=== PATIENT | female | born 1945 | race Caucasian/White ===

== ENCOUNTER → 2017-11-23 | Outpatient (CLI) | payer OTHER, MEDICARE ==
[~2017-11-23] VITALS: Ht 177.8 cm; Wt 78.0 kg
[~2017-11-23] MED LIST: A-CARO-2525000 UNIT PO; ALLERGY RELIEF25 M2 PO; ALPHA LIPOIC A200 M1 PO; APPLE CIDER VI500 MG PO; BACTRIM DS TAB1 EACH PO; BENADRYL25 MG PO; CALCIUM 600 +1 EAC1 PO; CALCIUM-MAGNES1 EAC4 PO; CENTRUM SILVER1 EAC4 PO; CHERRY FRUIT EXTRACT PO; CINNAMON500 MG PO; CO Q-10200 MG PO; GLIMEPIRIDE1 MG PO; HYDROCHLOROTHIA25 M2 PO; LEVOTHYROXINE 0.1 MG PO; LEVOXYL100 MCG PO; OMEGA-31000 M1 PO; PERCOCET 5-3251 EACH PO; TURMERIC/CURCUMIN PO; VENTOLIN HFA 1818 GM INH; VITAMINC500 PO
--- NOTE | ~2017-11-23 | PATH ---
[facility] [place] [address] PATHOLOGY RPT PROCEDURE Name: JULIA GAN MARCIA Room #: REG BLACK Crisostomo.#: [id number] Admission: 11/23/17 Date of : 49 Discharge: Report #: [id number] Path Case #: [id number] LCA Accession Number: [id number] . 01 Material submitted: . PART A: BX OF GASTRIC PART B: BX OF DISTAL ESOPHAGUS . 01 Clinical history: . Pre-OP DX: EHR, dysphagia Post-OP DX: Esophageal stricture, hiatal hernia, gastritis . 02 Diagnosis: A. Gastric mucosa, gastric, rule out H. pylori, endoscopic biopsy: - Mild reactive gastropathy. - Negative for intestinal metaplasia or atrophy. - Negative for Helicobacter pylori (properly controlled immunohistochemical stain performed). . B. Gastroesophageal mucosa, distal esophagus/distal esophageal stricture, rule out Knowles's, endoscopic biopsy: - Mild acute esophagitis. - Negative for intestinal metaplasia or dysplasia. - No increase in intraepithelial eosinophils. S/11/24/2017 . 02 Comment: Part B only co-reviewed by Dr. Brianna Ramos. . (IUV:alz; 11/24/2017) . 02 Electronically signed: . Ml Chen MD, Pathologist NPI- [id number] . 01 Gross description: . A. Received in formalin labeled "Julia Gan, BX of gastric, rule out H. pylori," are 2 segments of barahona soft tissue measuring 0.7 x 0.2 x 0.2 cm in aggregate dimensions and ranging from 0.3 to 0.4 cm in maximum dimension. The specimen is submitted entirely in cassette A1. . B. Received in formalin labeled "Julia Gan, BX of distal esophagus, rule out Knowles's," and additionally labeled on the requisition as "distal esophageal stricture BX," are 4 segments of barahona soft tissue measuring 1.1 x 0.7 x 0.2 cm in aggregate dimensions and ranging from 0.2 to 0.3 cm in maximum dimension. The specimen is submitted entirely in cassette B1. [address] [address] PATHOLOGY RPT PROCEDURE Name: JULIA GAN Room #: REG BLACK Diaz#: [id number] Admission: 11/23/17 Date of : 49 Discharge: Report #: [id number] Path Case #: [id number] (TSD; 11/23/2017) TOB/TOB . 02 Pathologist provided ICD-10: K31.9, K20.9 . 02 CPT . 608358, 355346, [id number] Performed at: [address], [place] [id number] MD Tarun Victor MD Phone: [phone] Performed at: [address] [id number] MD Ml Chen MD Phone: [phone]
== END | disposition home or self-care (01) ==
LOC: GI 08:29
DX: K29.70 Gastritis, unspecified, without bleeding (principal); K22.2 Esophageal obstruction; K31.9 Disease of stomach and duodenum, unspecified; K20.9 Esophagitis, unspecified; K44.9 Diaphragmatic hernia without obstruction or gangrene; E11.9 Type 2 diabetes mellitus without complications; E03.9 Hypothyroidism, unspecified; Z79.899 Other long term (current) drug therapy; Z90.710 Acquired absence of both cervix and uterus; Z98.890 Other specified postprocedural states; Z98.41 Cataract extraction status, right eye; Z98.42 Cataract extraction status, left eye; Z96.1 Presence of intraocular lens; Z85.3 Personal history of malignant neoplasm of breast
CPT/HCPCS: 62110; 62900

== ENCOUNTER → 2017-12-30 | Outpatient (CLI) | payer OTHER, MEDICARE | LOC: SPEECH 09:57 | DX: K21.9 Gastro-esophageal reflux disease without esophagitis (principal); R13.14 Dysphagia, pharyngoesophageal phase; E03.9 Hypothyroidism, unspecified; J30.9 Allergic rhinitis, unspecified; R49.0 Dysphonia; J44.9 Chronic obstructive pulmonary disease, unspecified ==

== ENCOUNTER → 2018-04-06 | Outpatient (CLI) | payer OTHER, MEDICARE ==
[~2018-04-06] MED LIST changes: +ACETAMINOPHEN325 M1 PO; +AMARYL2 MG PO; +FLONASE 0.05%50 MCG NASAL; +MIRALAX17 GM PO; +NORCO 5-325 TA1 EACH PO; +PACERONE 200 M200 M1 PO; +PROTONIX40 M1 PO; +ZYRTEC10 M5 PO
== END ==
LOC: NUC 11:56 → CARD 11:59
DX: R07.9 Chest pain, unspecified (principal)

== ENCOUNTER → 2018-04-13 | Outpatient (CLI) | payer OTHER, MEDICARE ==
[2018-04-13 09:58] LABS: BASOPHILS 1.1 % (0.0-2.0); EOSINOPHILS 1.4 % (0.0-3.0); HEMATOCRIT 41.8 % (37.0-47.0); HEMOGLOBIN 14.6 gm/dL (12.0-15.0); LYMPHOCYTES 27.7 % (24.0-44.0); MCH 30.5 pg (26.0-34.0); MCHC 34.8 g/dL (28.0-37.0); MCV 87.7 fL (80.0-100.0); MONOCYTES 7.7 % (1.0-8.0); PLATELET COUNT 159 thou/uL (150-400); POLYS 62.1 % (36.0-66.0); RBC 4.76 mil/uL (4.20-5.00); RDW 13.6 % (10.5-14.5); WBC 6.4 thou/uL (4.0-11.0)
[2018-04-13 10:17] LABS: ALBUMIN 4.1 g/dL (3.4-5.0); CALCIUM 9.8 mg/dL (8.5-10.1); CREATININE 0.9 mg/dL (0.6-1.0); POTASSIUM 3.8 mmol/L (3.5-5.1); TOTAL BILIRUBIN 0.6 mg/dL (<0.1-1.0); TOTAL PROTEIN 7.7 g/dL (6.4-8.2)
== END ==
LOC: CAT 08:57
PROVIDERS: Internal Medicine Cardiovascular Disease
DX: I48.91 Unspecified atrial fibrillation (principal); I25.10 Atherosclerotic heart disease of native coronary artery without angina pectoris; J98.11 Atelectasis; M47.812 Spondylosis without myelopathy or radiculopathy, cervical region

== ENCOUNTER 2018-04-21 06:49 | Observation (INO) | payer OTHER, MEDICARE ==
[~2018-04-21] VITALS: Ht 177.8 cm; Wt 77.1 kg
--- NOTE | ~2018-04-21 | EKG ---
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1945 Requested By: Xavier Keita Order Number: [id number] MD: Luís Mast Measurements Intervals [place] Rate: 74 P: 22 TX: 170 QRS: -10 QRSD: 94 T: 38 QT: 416 QTc: 462 Interpretive Statements Sinus rhythm Borderline T wave abnormalities Compared to ECG 01/31/2018 08:21:36 No significant change was found Electronically Signed On 04-22-2018 7:44:46 NEPHROLOGY NURSE by Luís Mast [email or web address] <ELECTRONICALLY SIGNED> By: Luís Mast MD, [facility] 04/22/18 0744 1544 1544 Luís Mast MD, [facility] /EPI
--- NOTE | ~2018-04-21 | P ---
[facility] [place] [address] [place] [address] PROCEDURE REPORT Name: KRISTI GAN Room #: 219-P [facility] M.Emil#: [id number] Admission: 04/21/18 Attend Phys: Xavier Keita MD Discharge: Date of : 49 Report #: [id number] THIS REPORT FOR: //name// CC: FAM unknown Xavier SEGAL DATE OF SERVICE: 04/21/2018 PROCEDURE: AFib ablation. PREOPERATIVE DIAGNOSIS: Paroxysmal atrial fibrillation. POSTOPERATIVE DIAGNOSIS: Paroxysmal atrial fibrillation. HISTORY: The patient is a 73-year-old female with a history of paroxysmal atrial fibrillation who is here for AFib ablation. PROCEDURES PERFORMED: 1. AFib ablation, CPT code 47612. 2. 3D mapping, CPT code 86461. 3. Intracardiac echo, CPT code 29121. ANESTHESIA: The patient underwent general anesthesia with no anesthesia related complications. DESCRIPTION OF PROCEDURE: The patient underwent informed consent. We discussed the details of the procedure including the risks, which include but not limited to bleeding, vascular damage, cardiac perforation, stroke, [place]. She understood these risks and is willing to proceed. The patient was brought to the EP laboratory in a fasting and sedated state and prepped and draped in a sterile fashion. I obtained access to the right femoral vein x 3, placing a 9-Hungarian, 8-Hungarian and 7-Hungarian short sheaths using the modified Seldinger technique and then under fluoroscopy I placed a decapolar catheter easily in the coronary sinus and ICE catheter in the right atrium. Using intracardiac ultrasound, we created a detail 3D geometry of the left atrium with specific emphasis on the two left and two right pulmonary veins. The patient was then systemically heparinized and a transseptal was performed using an SL1 sheath and a [place] needle. This was straightforward. She did have a thin fossa. I then placed a Lasso catheter in the left atrium and we created a detailed 3D map of the left atrium. This was merged with the CT scan and the ICE images. Next, I exchanged the SL1 sheath for the cryo sheath and placed the cryoballoon into the left atrium. I performed two 4-minute freezes in the left superior pulmonary vein and this did not appear to have isolated. I then performed a third freeze of 200 seconds duration. All 3 freezes had very [facility] [address] [place] [address] PROCEDURE REPORT Name: KRISTI GAN MARCIA Room #: 219-P [facility] Melonie Diaz#: [id number] Admission: 04/21/18 Attend Phys: Xavier Keita MD Discharge: Date of : 49 Report #: [id number] good temperatures in the -40 degree range. I therefore deflated the balloon and interrogated the vein and at the ostium it appeared that it was actually isolated. Apparently, there were some far field left atrial appendage signals that we were seeing but the vein had already isolated. There was evidence of entrance and exit block throughout the vein as well. I then turned my attention to the left inferior pulmonary vein. I performed two 4-minute freezes in this vein and this was isolated. I then turned my attention to the right superior pulmonary vein. We performed two 4-minute freezes in this vein as well and this vein was isolated. I then re-interrogated the left-sided veins and they were still isolated and then I went to the right inferior pulmonary vein and I performed a 4-minute freeze in this vein. This vein isolated within 28 seconds of the first freeze, therefore only one freeze was required. I then removed the cryo catheter and placed the Lasso back into the left atrium and we created a detailed voltage map of the left atrium and there was clearly evidence of isolation of all four pulmonary veins with wide circumferential ablation of the veins. I then performed a basic EP study. Prior to ablation, the patient was in sinus rhythm with sinus cycle length of 180 milliseconds, QRS duration 80 milliseconds, QT interval 40 milliseconds, AH interval 95 milliseconds, and HV interval 48 milliseconds. Post-ablation, atrial pacing was performed from the right and left atriums and AV block was noted at 380 milliseconds. Atrial ERP was noted at 300 milliseconds at a [address] cycle length and AV diaz ERP was noted at 300 millisecond at [address] cycle length. The sinus node recovery time pacing at 400 milliseconds was 870 milliseconds. Post-ablation, the patient was in sinus rhythm with sinus cycle length of 90 milliseconds, PA interval 165 milliseconds, QRS duration 80 milliseconds, QT interval 400 milliseconds. As such, all catheters and sheaths were pulled. Hemostasis was obtained after the patient received systemic protamine. CONCLUSIONS: 1. Successful atrial fibrillation ablation with isolation of the 4 pulmonary veins. 2. Normal SA diaz function. 3. Normal AV diaz function. 4. Normal His-Purkinje function. 5. No other inducible arrhythmias on EP study. By: 1116 [id number] Xavier Keita MD /nt
[2018-04-21 07:21] LABS: ABSOLUTE NEUTROPHILS 4.7 thou/uL (1.4-8.2); BASOPHILS 0.5 % (0.0-2.0); EOSINOPHILS 1.9 % (0.0-3.0); HEMATOCRIT 42.5 % (37.0-47.0); HEMOGLOBIN 14.7 gm/dL (12.0-15.0); LYMPHOCYTES 24.8 % (24.0-44.0); MCH 30.6 pg (26.0-34.0); MCHC 34.5 g/dL (28.0-37.0); MCV 88.6 fL (80.0-100.0); MONOCYTES 9.2 % (1.0-8.0); PLATELET COUNT 167 thou/uL (150-400); POLYS 63.6 % (36.0-66.0); RDW 13.6 % (10.5-14.5); WBC 7.4 thou/uL (4.0-11.0)
[2018-04-21 07:33] LABS: CALCIUM 10.2 mg/dL (8.5-10.1); CREATININE 0.8 mg/dL (0.6-1.0); POTASSIUM 3.6 mmol/L (3.5-5.1)
[2018-04-21 07:34] LABS: APTT 29.8 Seconds (24.5-32.8); PROTIME 10.6 Seconds (9.3-11.4)
[2018-04-21] MEDS ORDERED: HYDROCHLOROTHIA25 M2 PO (07:36)
[2018-04-21] MEDS ORDERED: ADVAIR 100-501 EACH INH (07:36)
[2018-04-21] MEDS ORDERED: KLOR-CON 1010 MEQ PO (07:37)
[2018-04-21] MEDS ORDERED: PRADAXA150 MG PO (07:37)
[2018-04-21 07:39] VITALS: BP 117/59
[2018-04-21 07:40] LABS: ALBUMIN 4.3 g/dL (3.4-5.0); TOTAL BILIRUBIN 0.6 mg/dL (<0.1-1.0); TOTAL PROTEIN 8.5 g/dL (6.4-8.2)
[2018-04-21 19:55] VITALS: BP 106/56
[2018-04-22 01:22] VITALS: BP 126/69
[2018-04-22 06:05] VITALS: BP 112/62
[2018-04-22 08:30] VITALS: BP 127/72
[2018-04-22] MEDS ORDERED: FLECAINIDE ACET50 M2 PO (08:54)
[2018-04-22 09:52] VITALS: BP 127/72
== END 2018-04-22 11:00 | disposition home or self-care (01) ==
LOC: CATH 06:49 → 2N 12:27 → CATH 14:38 → ENTRNSPT 04-22 10:06 → EDTRNSPT 04-22 10:22 → 2N 04-22 11:00 → EDTRNSPTSTS 04-22 11:03
PROVIDERS: Internal Medicine Cardiovascular Disease
DX: I48.0 Paroxysmal atrial fibrillation (principal); E07.9 Disorder of thyroid, unspecified; E11.9 Type 2 diabetes mellitus without complications; Z98.890 Other specified postprocedural states; Z90.49 Acquired absence of other specified parts of digestive tract; Z79.899 Other long term (current) drug therapy; Z85.3 Personal history of malignant neoplasm of breast
CPT/HCPCS: 62110; 62900; 65020; 65040; 70005

== ENCOUNTER → 2018-10-25 | Outpatient (CLI) | payer OTHER, MEDICARE ==
[~2018-10-25] MED LIST changes: +ADVAIR 100-501 EACH INH; +FLECAINIDE ACET50 M2 PO; +KLOR-CON 1010 MEQ PO; +PRADAXA150 MG PO
[2018-10-25 11:22] VITALS: BP 149/78
--- NOTE | 2018-10-25 16:45 | P ---
[facility] [place] [address] PROCEDURE REPORT Name: KRISTI GAN Room #: REG Al Diaz#: [id number] Admission: 10/25/18 ������������������ Attend Phys: Xavier Keita MD Discharge: ������������������ Date of : 49 Report #: [id number] THIS REPORT FOR: //name// CC: FAM unknown Xavier Keita MARKIE SEGAL PREOPERATIVE DIAGNOSIS: 1. Atrial fibrillation. 2. Palpitations. PROCEDURE: Implantable loop recorder DESCRIPTION OF PROCEDURE: The patient underwent informed consent. She was prepped and draped in a sterile fashion. I then injected lidocaine at the incision site. Incision was made. The device was injected under the skin. A single layer of suture using 3-0 Vicryl was performed. Surgical glue was placed to the outer skin layer. There was no significant bleeding or complications. The implanted device was a [employer], model #3500, serial #[id number]. CONCLUSION: Successful implantable loop recorder insertion. ��������������������������������������������� <ELECTRONICALLY SIGNED> ���������������������������������������� By: Xavier Keita MD ��������������������������������������������� 10/25/18 1645 0913 1242 Xavier Keita MD /nt
== END | disposition home or self-care (01) ==
LOC: CATH 07:06
DX: I48.91 Unspecified atrial fibrillation (principal); R00.2 Palpitations; Z98.890 Other specified postprocedural states; Z88.8 Allergy status to other drugs, medicaments and biological substances; Z79.899 Other long term (current) drug therapy

== ENCOUNTER 2019-02-16 06:08 | Observation (INO) | payer OTHER, MEDICARE ==
[~2019-02-16] VITALS: Ht 177.8 cm; Wt 83.9 kg
[2019-02-16 07:06] VITALS: BP 135/62
[2019-02-16 07:15] LABS: BASOPHILS 0.6 % (0.0-2.0); EOSINOPHILS 3.7 % (0.0-3.0); HEMOGLOBIN 14.1 gm/dL (12.0-15.0); LYMPHOCYTES 33.5 % (24.0-44.0); MCH 30.4 pg (26.0-34.0); MCHC 33.5 g/dL (28.0-37.0); MCV 90.7 fL (80.0-100.0); MONOCYTES 10.7 % (1.0-8.0); PLATELET COUNT 138 thou/uL (150-400); POLYS 51.5 % (36.0-66.0); RBC 4.63 mil/uL (4.20-5.00); RDW 12.6 % (10.5-14.5); WBC 5.9 thou/uL (4.0-11.0)
[2019-02-16 07:22] LABS: CALCIUM 9.6 mg/dL (8.5-10.1); CREATININE 0.8 mg/dL (0.6-1.0); POTASSIUM 3.2 mmol/L (3.5-5.1)
--- NOTE | 2019-02-16 17:09 | NUR ---
TO THE UNIT POST ABLATION - PT ORIENTED TO THE ROOM AND BEDSPACE. VSS GROINSITE RIGHT WITH MIN AMOUNT OF BLOOD DRAINAGE PRESENT STABLE. GROIN REMAINS SOFT NO HEAMMATOMMA PRESENT. PT REMAINS ON BEDREST AT THE PRESENT TIME. EMMANUEL DIET AND FLUIDS. NO CO'S OF PAIN OR NAUSEA. FAMILY AT THE BEDSIDE. NO CO'S AT THE PRESENT TIME.
[2019-02-16 19:16] VITALS: BP 117/60
[2019-02-17 03:48] VITALS: BP 97/44
--- NOTE | 2019-02-17 04:42 | NUR ---
ASSESSMENTS CHARTED, MEDS CHARTED. PATIENT OFF BEDREST BEFORE START OF SHIFT. BOTH RIGHT AND LEFT GROIN SITES ARE CLEAN, DRY, INTACT, AND SOFT. IN SINUS RHYTHM DURING SHIFT. ON ROOM AIR, PURDY WAS TAKEN OUT AT START OF SHIFT, VOIDING WELL IN TOLIET. C/O PAIN SHOOTING DOWN LEFT LEG. PAIN MEDS GIVEN. PATIENT STEADY ON HER FEET. UP AT JOSEPH. PLAN OF CARE TO GO HOME TODAY.
[2019-02-17 08:49] VITALS: BP 108/63
[2019-02-17 09:38] VITALS: BP 108/63
--- NOTE | 2019-02-17 10:28 | NUR ---
ASSESSMENT CHARTED - MEDS PER AUG - NO CO'S OF PAIN OR NAUSEA - EMMANUEL DIET AND FLUIDS. UP AD JOSEPH IN ROOM. GROIN SITE C/D/I. PT HOME THIS AM - INSTRUCTION RE MEDS/ CARE AND FOLLOW UP GIVEN TO PT AND DAUGHTER - STATED UNDERSTANDING OF INSTRUCTION GIVEN, MONITOR AND IV REMOVED PRIOR TO D/C. LEFT UNIT VIA WHEELCHAIR - HOME VIA PVT VEHICLE ACCOMAPNIED BY DAUGHTER. NO CO'S AT TIME OF D/C.
--- NOTE | 2019-02-22 08:22 | P ---
[facility] [place] [address] PROCEDURE REPORT Name: KRISTI GAN Room #: 213-P [facility] Melonie Diaz#: [id number] Admission: 02/16/19 ������������������ Attend Phys: Xavier Keita MD Discharge: 02/17/19 ������������������ Date of : 49 Report #: [id number] THIS REPORT FOR: //name// CC: FAM unknown Xavier Keita DATE OF SERVICE: 02/17/2019 PREOPERATIVE DIAGNOSIS: Atrial fibrillation. POSTOPERATIVE DIAGNOSIS: Atrial fibrillation, atrial flutter. HISTORY OF PRESENT ILLNESS: The patient is a 74-year-old female with history of atrial fibrillation status post prior AFib ablation who has had clinical recurrence and is here for repeat ablation. PROCEDURES PERFORMED: 1. SVT ablation, CPT code 97305. 2. EP with left atrial pacing and recording, CPT code 33555. 3. Program stimulation and pacing after IV drug infusion, CPT code 20224. 4. Intracardiac echo, CPT code 18402. 5. Transseptal puncture, CPT code 19372. 6. Arterial line placement, CPT code 71485. ANESTHESIA: The patient underwent general anesthesia with no anesthesia related complications. The anesthesiologist had difficulty getting the venous and arterial access and therefore, I performed these procedures for them. DESCRIPTION OF PROCEDURE: The patient was prepped and draped in a sterile fashion. I then obtained access to the right femoral vein x 3, placing two 8-Burkinan short sheath and 7-Burkinan short sheath and then placed a 9-Burkinan short sheath in the left femoral vein and I placed a 5-Burkinan short sheath in the right femoral artery, all using the modified Seldinger technique. Next, under fluoroscopy, a Decapolar catheter was placed easily in the coronary sinus and ice catheter was placed into the left atrium. The patient was then systemically heparinized and a transseptal was performed using an SL1 sheath and a [place] needle. The initial spot I tried to go transseptal, I could not cross with my wire. Therefore, I went down a little lower and came on again with the [place] needle and this time, the wire cross into the left superior pulmonary vein. I then was able to advance the sheath into the left atrium. Next, using a [employer] ablation catheter, I interrogated all four pulmonary veins and they remained isolated from the prior procedure. Therefore, we went to the right side of the heart and using a ramp sheath and an 8 mm ablation catheter and performed an atrial flutter ablation. I performed ablation at 70 levine and 60 degrees. Pre-ablation, the transisthmus conduction time was 80 milliseconds and post-ablation, the transisthmus conduction time was [address] [address] PROCEDURE REPORT Name: MALIKKRISTINICOLE KENNEDY Room #: 213-P [facility] Diaz#: [id number] Admission: 02/16/19 ������������������ Attend Phys: Xavier Keita MD Discharge: 02/17/19 ������������������ Date of : 49 Report #: [id number]. Next, a basic EP study was performed and isoproterenol infusion was initiated and AV block was noted at 300 milliseconds. Atrial ERP was noted at 220 milliseconds at a [address] cycle length. Of note, when I was in the left atrium, I did give adenosine while the PentaRay was in each of the pulmonary veins. The patient received 6 of protamine and there was no evidence of reconnection in either of the veins and there was evidence of an adenosine effect with transitory heart block noted. As such, all veins remained isolated and there was no evidence of bidirectional block and an EP study did not induce any other arrhythmias to ablate. Therefore the procedure was concluded. The patient received systemic protamine and once ACT was within acceptable range, all catheters and sheaths were pulled and hemostasis was obtained. The patient awoke neurologically and hemodynamically intact. No complications and no significant bleeding. CONCLUSIONS: 1. Successful atrial flutter ablation with evidence of bidirectional block. 2. Persistence of pulmonary vein isolation with no evidence of reconnection with 6 mg of adenosine administered for pulmonary vein. 3. Normal EP study with no inducible arrhythmias on or off isoproterenol. ��������������������������������������������� <ELECTRONICALLY SIGNED> ���������������������������������������� By: Xavier Keita MD ��������������������������������������������� 02/22/19 0822 2037 Xavier Keita MD /nt
== END 2019-02-17 10:24 | disposition home or self-care (01) ==
LOC: CATH 06:08 → 2N 13:38 → CATH 14:16 → ENTRNSPT 02-17 09:55 → EDTRNSPTSTS 02-17 10:16 → 2N 02-17 10:24
PROVIDERS: ADMIT Internal Medicine Cardiovascular Disease
DX: I48.0 Paroxysmal atrial fibrillation (principal); I48.92 Unspecified atrial flutter; E11.9 Type 2 diabetes mellitus without complications; E03.9 Hypothyroidism, unspecified; Z79.899 Other long term (current) drug therapy
CPT/HCPCS: 62110; 62900; 65040; 70005

== ENCOUNTER → 2019-11-15 | Outpatient (CLI) | payer OTHER, MEDICARE | LOC: SJCVC 13:27 | PROVIDERS: ATTEND Internal Medicine Cardiovascular Disease | DX: I48.0 Paroxysmal atrial fibrillation (principal); I48.3 Typical atrial flutter; Z79.899 Other long term (current) drug therapy ==

== ENCOUNTER → 2020-04-11 | Outpatient (CLI) | payer OTHER, MEDICARE | LOC: SJCVC 13:58 | PROVIDERS: ATTEND Internal Medicine Cardiovascular Disease | DX: I48.91 Unspecified atrial fibrillation (principal); I48.3 Typical atrial flutter; Z79.899 Other long term (current) drug therapy ==

== ENCOUNTER → 2020-10-16 | Outpatient (CLI) | payer OTHER, MEDICARE | LOC: SJCVC 13:07 | PROVIDERS: ATTEND Internal Medicine Cardiovascular Disease | DX: I48.0 Paroxysmal atrial fibrillation (principal); I48.3 Typical atrial flutter; I50.32 Chronic diastolic (congestive) heart failure; E11.9 Type 2 diabetes mellitus without complications; E03.9 Hypothyroidism, unspecified; I48.92 Unspecified atrial flutter; Z90.11 Acquired absence of right breast and nipple; Z98.890 Other specified postprocedural states; Z88.8 Allergy status to other drugs, medicaments and biological substances; Z79.82 Long term (current) use of aspirin; Z79.84 Long term (current) use of oral hypoglycemic drugs; Z79.899 Other long term (current) drug therapy; Z85.3 Personal history of malignant neoplasm of breast; Z82.49 Family history of ischemic heart disease and other diseases of the circulatory system ==

== ENCOUNTER → 2020-10-22 | Outpatient (CLI) | payer OTHER, MEDICARE | LOC: SJCVCIMAG 10:38 | PROVIDERS: ATTEND Internal Medicine Cardiovascular Disease | DX: I48.91 Unspecified atrial fibrillation (principal); E11.9 Type 2 diabetes mellitus without complications; R05 Cough; R06.00 Dyspnea, unspecified; Z79.82 Long term (current) use of aspirin; Z79.899 Other long term (current) drug therapy ==

== ENCOUNTER → 2021-01-08 | Outpatient (CLI) | payer OTHER, MEDICARE | LOC: SJCVC 16:18 | PROVIDERS: ATTEND Internal Medicine Cardiovascular Disease | DX: I48.0 Paroxysmal atrial fibrillation (principal); R94.31 Abnormal electrocardiogram [ECG] [EKG]; E11.9 Type 2 diabetes mellitus without complications; E03.9 Hypothyroidism, unspecified; Z90.49 Acquired absence of other specified parts of digestive tract; Z88.8 Allergy status to other drugs, medicaments and biological substances; Z79.84 Long term (current) use of oral hypoglycemic drugs; Z79.82 Long term (current) use of aspirin; Z79.899 Other long term (current) drug therapy; Z85.3 Personal history of malignant neoplasm of breast; Z82.49 Family history of ischemic heart disease and other diseases of the circulatory system ==

== ENCOUNTER → 2021-01-23 | Outpatient (CLI) | payer OTHER, MEDICARE ==
[~2021-01-23] VITALS: Ht 177.8 cm; Wt 88.6 kg
[~2021-01-23] MED LIST changes: +BREO ELLIPTA 11 EACH INH; +FLONASE 0.05%50 MCG NARES; +GLUMETZA500 PO; +LOW DOSE ASPIRI81 M1 PO; +TOPROL XL25 MG PO; +XARELTO20 MG PO
[2021-01-23 07:29] VITALS: BP 168/77
[2021-01-23 08:11] LABS: CALCIUM 9.3 mg/dL (8.5-10.1); POTASSIUM 3.9 mmol/L (3.5-5.1)
--- NOTE | 2021-01-23 09:27 | NUR ---
LATE ENTRY: 0800: PT PLACED ON MONITOR UPON ARRIVAL AT 0700 AND NOTED TO BE IN AFIB. PRIOR TO PROCEDURE PT CONVERTED TO SR. SO JENN AND CARDIOVERSION NOT PERFORMED. IV DC'D AND PT ESCORTED TO EXIT. VSS. SR RATE 60S.
--- NOTE | 2021-01-24 07:08 | EKG ---
[place] [address] [facility] [place] [address] ELECTROCARDIOGRAM REPORT Name: KRISTI GAN MARCIA 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1945 Requested By: Volodymyr Treviño Order Number: [id number] MD: Volodymyr Treviño Measurements Intervals [place] Rate: 68 P: 56 TX: 211 QRS: 4 QRSD: 108 T: 56 QT: 418 QTc: 445 Interpretive Statements Sinus rhythm Borderline T abnormalities, anterior leads Baseline wander in lead(s) I,aVR,aVL Compared to ECG 04/21/2018 15:44:40 No significant changes Electronically Signed On 01-24-2021 7:08:37 CDT by Volodymyr Treviño [email or web address] <ELECTRONICALLY SIGNED> By: Volodymyr Treviño MD, [facility] 08/707 4 4 Volodymyr Treviño MD, [facility] /EPI
== END | disposition home or self-care (01) ==
LOC: CATH 06:32
PROVIDERS: ATTEND Internal Medicine
DX: I48.91 Unspecified atrial fibrillation (principal); Z53.8 Procedure and treatment not carried out for other reasons; E03.9 Hypothyroidism, unspecified; E11.9 Type 2 diabetes mellitus without complications; Z98.890 Other specified postprocedural states; Z79.899 Other long term (current) drug therapy; Z90.49 Acquired absence of other specified parts of digestive tract; Z79.01 Long term (current) use of anticoagulants; Z82.49 Family history of ischemic heart disease and other diseases of the circulatory system; Z20.822 Contact with and (suspected) exposure to COVID-19

== ENCOUNTER → 2021-03-04 | Outpatient (CLI) | payer OTHER, MEDICARE ==
--- NOTE | ~2021-03-04 | P ---
[facility] [place] [address] PROCEDURE REPORT Name: KRISTI GAN Room #: REG BLACK Joe#: [id number] Admission: 03/04/21 Attend Phys: Xavier Keita MD Discharge: Date of : 49 Report #: [id number] THIS REPORT FOR: cc: MARKIE SEGAL [facility] - [facility] physician unknown Xavier Keita MD ~ DATE OF SERVICE: 03/04/2021 PROCEDURE: Explanation of the loop recorder. PREOPERATIVE DIAGNOSIS: ILR at end of service. POSTOPERATIVE DIAGNOSIS: ILR at end of service. DESCRIPTION OF PROCEDURE: The patient underwent informed consent. She was prepped and draped in a standard fashion. I then injected lidocaine at the prior incision site. Incision was made and the device was removed. A single layer of suture was performed. A dressing was placed. There were no procedure related complications. CONCLUSION: Successful removal of an implantable loop recorder. By: 1132 0036 Xavier Keita MD /nt
[2021-03-04 08:37] VITALS: BP 178/76
== END | disposition home or self-care (01) ==
LOC: CATH 07:00
PROVIDERS: ATTEND Internal Medicine Cardiovascular Disease
DX: Z45.09 Encounter for adjustment and management of other cardiac device (principal); Z98.890 Other specified postprocedural states; Z79.899 Other long term (current) drug therapy; Z88.8 Allergy status to other drugs, medicaments and biological substances